=== PATIENT | female | born 1945 | race Caucasian/White ===

== ENCOUNTER 2016-10-21 22:26 | Emergency (ER) | payer OTHER ==
[~2016-10-21] VITALS: Ht 157.5 cm; Wt 84.0 kg
[~2016-10-21 22:26] MED LIST: ACTONEL; ACTONEL150 MG PO; ASCO-TABS-1001000 MG PO; ASPIR-TRIN325 M1 PO; ASPIRIN EC325 MG PO; ASPIRIN325 MG PO; ASPIRIN81 M1 PO; ATELVIA35 MG PO; Actonel PO; Ascorbic Acid PO; BETAMETHASONE D45 G1 TP; BETAMETHASONE D60 ML TP; BIOTIN1000 MCG PO; Biotin PO; CALTRATE 600 +1 EAC1 PO; CALTRATE 6001 TABLE2 PO; CELEBREX200 MG PO; CENTRUM SILV1 TABLE1 PO; CENTRUM SILVER1 EAC4 PO; CEPHALEXIN500 MG PO; CYANOCOBALAM1000 MCG PO; DESONIDE TP; DESONIDE60 GM TP; DIPROSONE 0.05%15 G1 TP; DOXYCYCLINE HY100 MG PO; EFFEXOR; EFFEXOR XR75 MG PO; Ecotrin PO; Effexor XR PO; FEOSOL325 MG PO; HCTZ; HYDROCHLOROTHIA25 MG PO; HYDROCORTISON28.4 GM TP; Hydrodiuril,Oretic,E PO; KEFLEX500 MG PO; KENALOG,ARISTOC80 GM TP; LANSOPRAZOLE15 MG PO; LEVOTHYROXINE; LEVOTHYROXINE112 MCG PO; LISINOPRIL20 MG PO; Levothroid,Synthroid PO; MELATONIN10 M1 PO; MELOXICAM15 MG PO; METRO GEL 0.75%45 GM TP; METRONIDAZOLE59 ML TP; MOBIC15 MG PO; Melatonin PO; Move Free Advanced T PO; PREVACID30 MG PO; PYRIDOXINE,VIT100 MG PO; Prevacid PO; SELENIUM100 MICROG PO; SENOKOT S,PE1 TABLET PO; SYNTHROID112 MCG PO; Selenium PO; VIBRAMYCIN100 MG PO; VITAMIN B-6100 MG PO; VITAMIN C1000 MG PO; Vibramycin, Doryx PO; Vicodin,Lortab 5/500 PO; Vicodin,Norco 5/325 PO; Vitamin B-12 PO; ZESTRIL20 MG PO; ZINC GLUCONATE100 MG PO; ZOFRAN8 M1 PO; Zinc Gluconate PO
[2016-10-21 23:30] LABS: MCHC 34.2 G/DL (30.0-36.0); MCV 93.7 FL (83-99); MEAN PLAT.VOLUME 9.7 uM^3 (9.5-12.4); PLATELET COUNT 303 K/uL (156-360); RBC DIS.WIDTH-CV 13.2 % (11.8-14.6); RBC DIS.WIDTH-SD 43.4 % (39-53); RED BLOOD COUNT 4.59 M/uL (3.80-5.20); WHITE BLOOD COUNT 10.9 K/uL (4.1-10.2)
[2016-10-21 23:44] LABS: CHLORIDE 103 mEq/L (99-109); POTASSIUM 3.8 mEq/L (3.7-5.4); SODIUM 138 mEq/L (136-147)
[2016-10-21 23:46] LABS: GLUCOSE 117 mg/dL (70-99)
[2016-10-21 23:48] LABS: ANION GAP 12 MEQ/L (2-14)
[2016-10-21 23:50] LABS: GFR ESTIMATE (CALCULATED) > 59 mL/min/
[2016-10-21 23:51] LABS: UREA NITROGEN (BUN) 14 mg/dL (9-23)
[2016-10-21 23:56] LABS: TROP-I INTERPRETATION NEGATIVE; TROPONIN-I < 0.01 ng/mL (0.0-0.30)
[2016-10-22 01:00] VITALS: BP 150/70
== END 2016-10-22 01:12 | disposition home or self-care (01) ==
LOC: EME 22:26
DX: F43.22 Adjustment disorder with anxiety (principal); I10 Essential (primary) hypertension; E03.9 Hypothyroidism, unspecified; K21.9 Gastro-esophageal reflux disease without esophagitis; F32.9 Major depressive disorder, single episode, unspecified; K90.0 Celiac disease; M81.0 Age-related osteoporosis without current pathological fracture
CPT/HCPCS: 71020; 80048; 84484; 85027; 93005; 99281; 99283

== ENCOUNTER 2017-03-22 14:04 | Emergency (ER) | payer OTHER ==
[~2017-03-22] VITALS: Ht 165.1 cm; Wt 88.0 kg
[2017-03-22 14:08] VITALS: BP 152/64
[2017-03-22] MEDS ORDERED: PREDNISONE5 MG PO (15:11)
[2017-03-22] MEDS ORDERED: ZANFEL30 GM TP (15:12)
[2017-03-22] MEDS ORDERED: ATARAX,VISTARIL50 MG PO (15:12)
[2017-03-22] MEDS ORDERED: KEFLEX500 MG PO (15:14)
== END 2017-03-22 15:24 | disposition home or self-care (01) ==
LOC: EME 14:04
DX: L25.9 Unspecified contact dermatitis, unspecified cause (principal)
CPT/HCPCS: 99281; 99284; Q0177

== ENCOUNTER 2017-11-09 06:53 | Emergency (ER) | payer OTHER ==
[~2017-11-09] VITALS: Ht 165.1 cm; Wt 85.1 kg
[~2017-11-09 06:53] MED LIST changes: +ATARAX,VISTARIL50 MG PO; +PREDNISONE5 MG PO; +ZANFEL30 GM TP
[2017-11-09] MEDS ORDERED: AMOXICILLIN875 MG PO (07:24)
[2017-11-09] MEDS ORDERED: NEOMYCIN-POLYMY10 M1 LEFT EAR (07:24)
[2017-11-09 08:03] VITALS: BP 112/76
== END 2017-11-09 08:13 | disposition home or self-care (01) ==
LOC: EME 06:53
DX: H60.92 Unspecified otitis externa, left ear (principal); H66.92 Otitis media, unspecified, left ear; F41.9 Anxiety disorder, unspecified; E03.9 Hypothyroidism, unspecified; Z96.659 Presence of unspecified artificial knee joint; Z96.649 Presence of unspecified artificial hip joint; Z88.5 Allergy status to narcotic agent; Z88.6 Allergy status to analgesic agent; Z90.49 Acquired absence of other specified parts of digestive tract